=== PATIENT | female | born 1950 | race African-American/Black ===

== ENCOUNTER 2016-03-12 13:57 | Emergency (ER) | payer MEDICARE ==
[~2016-03-12] VITALS: Ht 157.5 cm; Wt 85.0 kg
[2016-03-12 14:01] VITALS: BP 167/76; PULSE 80; RESP 12; TEMP 98.5; O2SAT 96
--- NOTE | 2016-03-12 16:32 | PD ---
HPI Chief Complaint: Abnormal Results Time Seen by Provider: 16:28 Travel History International Travel<30 days: No Contact w/Intl Traveler<30days: No Traveled to known affect area: No History of Present Illness HPI 65 year-old female history of hypertension, end-stage renal disease, started hemodialysis 2 weeks ago in [place] the of Vas-Cath on her right anterior chest , presents to the emergency department seeking dialysis. Patient has relocated here from [place]. She went to the center today and was told that they were unable to dialyze her today but were hoping to be able to on her next scheduled day as . The patient is uncertain but believes it may be due to insurance and approval. She was advised by the man at the dialysis center, whom she is sure whom, to come to [place] for dialysis. The patient denies any chest pain or tightness. She states she is mildly short of breath. No recent illnesses, fever, or chills. She has no other symptoms to report. [facility] Social History Tobacco Use: No Allergies-Medications (Allergen,Severity, Reaction): Coded Allergies: No Known Allergies (Unverified , 03/12/16) Review of Systems Except as stated in HPI: all other systems reviewed are Neg Physical Exam Narrative GENERAL: Well-nourished female patient, in no acute distress SKIN: Warm and dry. Right anterior catheter in place. Dressing intact. HEAD: Atraumatic. Normocephalic. EYES: Pupils equal and round. No scleral icterus. No injection or drainage. ENT: No nasal bleeding or discharge. Mucous membranes pink and moist. NECK: Trachea midline. No JVD. CARDIOVASCULAR: Regular rate and rhythm. No murmur appreciated. RESPIRATORY: No accessory muscle use. Clear to auscultation. Breath sounds equal bilaterally. GASTROINTESTINAL: Abdomen soft, non-tender, nondistended. Hepatic and splenic margins not palpable. MUSCULOSKELETAL: No obvious deformities. No clubbing. No cyanosis. No edema. NEUROLOGICAL: Awake and alert. No obvious cranial nerve deficits. Motor grossly within normal limits. Normal speech. PSYCHIATRIC: Appropriate mood and affect; insight and judgment normal. Data Data Last Documented VS Vital Signs Date Time Temp Pulse Resp B/P Pulse Ox O2 Delivery O2 Flow Rate FiO2 03/12/16 19:24 16 98 Room Air 03/12/16 14:01 98.5 80 167/76 Orders Complete Blood Count With Diff (03/12/16 16:25) Basic Metabolic Panel (Bmp) (03/12/16 16:25) Urinalysis - C+S If Indicated (03/12/16 16:25) Electrocardiogram (03/12/16 ) Labs Laboratory Tests Test 03/12/16 17:10 White Blood Count 25.4 TH/MM3 Red Blood Count 3.27 MIL/MM3 Hemoglobin 8.9 GM/DL Hematocrit 28.6 % Mean Corpuscular Volume 87.6 FL Mean Corpuscular Hemoglobin 27.2 PG Mean Corpuscular Hemoglobin 31.0 % Concent Red Cell Distribution Width 15.5 % Platelet Count 531 TH/MM3 Mean Platelet Volume 8.8 FL Neutrophils (%) (Auto) 95.6 % Lymphocytes (%) (Auto) 3.3 % Monocytes (%) (Auto) 0.9 % Eosinophils (%) (Auto) 0.1 % Basophils (%) (Auto) 0.1 % Neutrophils # (Auto) 24.3 TH/MM3 Lymphocytes # (Auto) 0.8 TH/MM3 Monocytes # (Auto) 0.2 TH/MM3 Eosinophils # (Auto) 0.0 TH/MM3 Basophils # (Auto) 0.0 TH/MM3 CBC Comment AUTO DIFF Differential Total Cells 100 Counted Neutrophils % (Manual) 94 % Band Neutrophils % 1 % Lymphocytes % 4 % Monocytes % 1 % Neutrophils # (Manual) 24.1 TH/MM3 Differential Comment FINAL DIFF MANUAL Platelet Estimate HIGH Platelet Morphology Comment ENLARGED Urine Color LIGHT-YELLOW Urine Turbidity CLEAR Urine pH 5.5 Urine Specific [place] 1.011 Urine Protein 300 mg/dL Urine Glucose (UA) 70 mg/dL Urine Ketones NEG mg/dL Urine Occult Blood NEG Urine Nitrite NEG Urine Bilirubin NEG Urine Urobilinogen LESS THAN 2.0 MG/DL Urine Leukocyte Esterase NEG Urine RBC 1 /hpf Urine WBC 2 /hpf Urine Mucus FEW /lpf Microscopic Urinalysis Comment CULT NOT INDICATED Sodium Level 138 MEQ/L Potassium Level 4.8 MEQ/L Chloride Level 107 MEQ/L Carbon Dioxide Level 18.5 MEQ/L Anion Gap 13 MEQ/L Blood Urea Nitrogen 72 MG/DL Creatinine 5.20 MG/DL Estimat Glomerular Filtration 8 ML/MIN Rate Random Glucose 254 MG/DL Calcium Level 8.3 MG/DL [facility] Medical Decision Making Medical Screen Exam Complete: Yes Emergency Medical Condition: Yes Medical Record Reviewed: Yes Differential Diagnosis Normal examination versus electrolyte abnormality versus fluid overload Narrative Course 65 year-old female presents to the emergency department for evaluation. Patient appears without distress. Workup was initiated in triage. Once a medical bed becomes available, patient will be transferred. I have explained to the patient and her daughters that emergent dialysis may not be needed today pending these results. They verbalized understanding of this. Condition: Stable SalvadorMarianela HAMILTON Mar 12, 2016 16:28
[2016-03-12 17:30] LABS: AUTOMATED NEUTROPHIL # 24.3 TH/MM3 (1.8-7.7); BASOPHIL % 0.1 % (0.0-2.0); EOSINOPHIL % 0.1 % (0.0-4.0); HEMATOCRIT 28.6 % (35.0-46.0); LYMPH % 3.3 % (9.0-44.0); LYMPHOCYTE # 0.8 TH/MM3 (1.0-4.8); MEAN CELL VOLUME 87.6 FL (80.0-100.0); MEAN CORPUSCULAR HEMOGLOBIN 27.2 PG (27.0-34.0); MONO % 0.9 % (0.0-8.0); NEUT % 95.6 % (16.0-70.0); PLATELET COUNT 531 TH/MM3 (150-450); RED BLOOD COUNT 3.27 MIL/MM3 (4.00-5.30); RED CELL DISTRIBUTION WIDTH 15.5 % (11.6-17.2); WHITE BLOOD COUNT 25.4 TH/MM3 (4.0-11.0)
[2016-03-12 17:32] LABS: HEMO FLAGS AUTO DIFF
[2016-03-12 17:39] LABS: BLOOD, URINE NEG (NEG); COMMENT (UR) CULT NOT INDICATED; CULTURE IF INDICATED CULT NOT INDICATED; GLUCOSE,URINE 70 mg/dL (NEG); KETONE, URINE NEG (NEG); MUCUS URINE FEW /lpf (OCC); NITRITE,URINE NEG (NEG); PH, URINE 5.5 (5.0-8.5); URINE COLOR LIGHT-YELLOW (YELLW/STRAW)
[2016-03-12 17:48] LABS: BICARBONATE 18.5 MEQ/L (21.0-32.0); POTASSIUM 4.8 MEQ/L (3.5-5.1)
[2016-03-12 17:54] LABS: BANDS 1 % (0-6); NEUTROPHIL # MANUAL DIFF 24.1 TH/MM3 (1.8-7.7); POLYS (SEG NEUTROPHILS) 94 % (16-70); WBC DIFF SAMPLE 100
[2016-03-12 17:55] LABS: PLATELET ESTIMATE SMEAR HIGH (NORMAL); PLATELET MORPHOLOGY ENLARGED (NORMAL); SCAN/DIFF FINAL DIFF MANUAL
--- NOTE | 2016-03-12 21:10 | PD ---
Data Data Last Documented VS Vital Signs Date Time Temp Pulse Resp B/P Pulse Ox O2 Delivery O2 Flow Rate FiO2 03/12/16 19:24 16 98 Room Air 03/12/16 14:01 98.5 80 167/76 Orders Complete Blood Count With Diff (03/12/16 16:25) Basic Metabolic Panel (Bmp) (03/12/16 16:25) Urinalysis - C+S If Indicated (03/12/16 16:25) Electrocardiogram (03/12/16 ) Labs Laboratory Tests Test 03/12/16 17:10 White Blood Count 25.4 TH/MM3 Red Blood Count 3.27 MIL/MM3 Hemoglobin 8.9 GM/DL Hematocrit 28.6 % Mean Corpuscular Volume 87.6 FL Mean Corpuscular Hemoglobin 27.2 PG Mean Corpuscular Hemoglobin 31.0 % Concent Red Cell Distribution Width 15.5 % Platelet Count 531 TH/MM3 Mean Platelet Volume 8.8 FL Neutrophils (%) (Auto) 95.6 % Lymphocytes (%) (Auto) 3.3 % Monocytes (%) (Auto) 0.9 % Eosinophils (%) (Auto) 0.1 % Basophils (%) (Auto) 0.1 % Neutrophils # (Auto) 24.3 TH/MM3 Lymphocytes # (Auto) 0.8 TH/MM3 Monocytes # (Auto) 0.2 TH/MM3 Eosinophils # (Auto) 0.0 TH/MM3 Basophils # (Auto) 0.0 TH/MM3 CBC Comment AUTO DIFF Differential Total Cells 100 Counted Neutrophils % (Manual) 94 % Band Neutrophils % 1 % Lymphocytes % 4 % Monocytes % 1 % Neutrophils # (Manual) 24.1 TH/MM3 Differential Comment FINAL DIFF MANUAL Platelet Estimate HIGH Platelet Morphology Comment ENLARGED Urine Color LIGHT-YELLOW Urine Turbidity CLEAR Urine pH 5.5 Urine Specific [place] 1.011 Urine Protein 300 mg/dL Urine Glucose (UA) 70 mg/dL Urine Ketones NEG mg/dL Urine Occult Blood NEG Urine Nitrite NEG Urine Bilirubin NEG Urine Urobilinogen LESS THAN 2.0 MG/DL Urine Leukocyte Esterase NEG Urine RBC 1 /hpf Urine WBC 2 /hpf Urine Mucus FEW /lpf Microscopic Urinalysis Comment CULT NOT INDICATED Sodium Level 138 MEQ/L Potassium Level 4.8 MEQ/L Chloride Level 107 MEQ/L Carbon Dioxide Level 18.5 MEQ/L Anion Gap 13 MEQ/L Blood Urea Nitrogen 72 MG/DL Creatinine 5.20 MG/DL Estimat Glomerular Filtration 8 ML/MIN Rate Random Glucose 254 MG/DL Calcium Level 8.3 MG/DL [facility] Medical Record Reviewed: Yes Supervised Visit with MARTIN: Yes Narrative Course CBC & BMP Diagram 03/12/16 17:10 Neutrophils 94% Anion gap 13 Urinalysis shows no UTI The patient is on prednisone, presumably the etiology of her leukocytosis. Is no fever cough urinary complaint or specific medical complaints otherwise to suggest infection. Furthermore she has no complaints consistent with volume overload. The case was discussed with on-call nephrology and a plan for discharge home with follow-up in 2 days' time as scheduled ( at 415pm) at the patient's new dialysis center is considered reasonable. Strict dietary adherence discussed. Return precautions were discussed as well and the patient feels comfortable with plan. Diagnosis Primary Impression: ESRD (end stage renal disease) on dialysis Additional Impression: Leukocytosis, unspecified Referrals: Hemodialysis on Additional Instruction: You have a choice when it comes to health care, and we are glad that you chose [facility]. Hopefully, we have met your expectations on today's visit. You are welcome to return to [facility] at any time, as we are committed to meeting the health care needs of our community. Med/Other Pt SpecificInfo: No Change to Meds Disposition: 01 DISCHARGE HOME Condition: Stable Zelalem Mac MD Mar 12, 2016 21:09
--- NOTE | 2016-03-13 15:39 | EKG ---
Date Performed: 03/12/2016 Time Performed: 17:21:08 PTAGE: 65 years EKG: Sinus rhythm WITH MARKED SINUS ARRHYTHMIA MARKED T-WAVE ABNORMALITY, CONSIDER ANTEROLATERAL ISCHEMIA MODERATE T-W AVE ABNORMALITY, CONSIDER INFERIOR ISCHEMIA Compared to previous tracing, there is now evidence of do minant R waves in leads V2 and nonspecific ST-T wave changes inferiorly and deep inverted T waves in the anterior leads Clinical correlation is recommended Compared to prior tracing no significant hurley e ABNORMAL ECG PREVIOUS TRACING : 01/22/1995 10.28 DOCTOR: Yang Felipe Interpretating Date/Time 03/13/2016 15:38:34
[2016-07-10] MEDS ORDERED: HYDR-3801 PO (11:32)
== END 2016-03-12 23:08 | disposition home or self-care (01) ==
LOC: NEPE 13:57
DX: I12.0 Hypertensive chronic kidney disease with stage 5 chronic kidney disease or end stage renal disease (principal); N18.6 End stage renal disease; D72.829 Elevated white blood cell count, unspecified; Z99.2 Dependence on renal dialysis
CPT/HCPCS: 80048; 81001; 85007; 85027; 93005

== ENCOUNTER 2016-03-14 21:05 | Emergency (ER) | payer MEDICARE ==
[~2016-03-14] VITALS: Ht 157.5 cm; Wt 90.0 kg
[2016-03-14 21:07] VITALS: BP 172/79; PULSE 88; RESP 16; TEMP 98.4; O2SAT 97
[2016-07-10] MEDS ORDERED: HYDR-3801 PO (11:32)
== END 2016-03-15 02:20 | disposition left against medical advice (07) ==
LOC: NED 21:05
DX: R42 Dizziness and giddiness (principal); Z53.21 Procedure and treatment not carried out due to patient leaving prior to being seen by health care provider
CPT/HCPCS: 99281

== ENCOUNTER 2016-03-21 03:17 | Emergency (ER) | payer MEDICARE ==
[~2016-03-21] VITALS: Ht 157.5 cm; Wt 85.0 kg
[2016-03-21 03:22] VITALS: BP 195/84; PULSE 90; RESP 18; TEMP 98.7; O2SAT 94
[2016-03-21] MEDS ORDERED: TRAM50TA PO (03:42)
[2016-03-21] MEDS ORDERED: GABA100C4 PO (03:42)
[2016-03-21] MEDS ORDERED: ASPI325T PO (03:42)
[2016-03-21] MEDS ORDERED: PRED20 PO (03:42)
[2016-03-21] MEDS ORDERED: AMLO5TAB2 PO (03:42)
[2016-03-21] MEDS ORDERED: LIPI80TA PO (03:42)
[2016-03-21] MEDS ORDERED: HYDR50TA15 PO (03:42)
[2016-03-21] MEDS ORDERED: PLAV75TA29 PO (03:42)
[2016-03-21] MEDS ORDERED: CARV12.5 PO (03:42)
[2016-03-21] MEDS ORDERED: NITROGLYCERIN 2% OINT 1 GM PACKET TOP ONE (03:45)
[2016-03-21] MEDS ORDERED: SODIUM CHLORIDE 0.9% FLUSH 5 ML FLUSH IVF PRN (03:45)
[2016-03-21] MEDS ORDERED: ASPIRIN 325 MG TAB PO ONE (03:45)
[2016-03-21] MEDS ORDERED: MORPHINE SULFATE 4 MG/ML INJ IV PUSH ONE (03:45)
[2016-03-21 03:57] LABS: BASOPHIL # 0.1 TH/MM3 (0-0.2); BASOPHIL % 0.6 % (0.0-2.0); EOSINOPHIL # 0.1 TH/MM3 (0-0.4); EOSINOPHIL % 0.5 % (0.0-4.0); HEMATOCRIT 25.1 % (35.0-46.0); HEMO FLAGS DIFF FINAL; LYMPH % 10.4 % (9.0-44.0); LYMPHOCYTE # 1.5 TH/MM3 (1.0-4.8); MEAN CELL VOLUME 85.1 FL (80.0-100.0); MEAN CORPUSCULAR HGB CONC 32.9 % (32.0-36.0); NEUT % 82.5 % (16.0-70.0); PLATELET COUNT 408 TH/MM3 (150-450); RED BLOOD COUNT 2.96 MIL/MM3 (4.00-5.30); RED CELL DISTRIBUTION WIDTH 15.1 % (11.6-17.2); WHITE BLOOD COUNT 14.6 TH/MM3 (4.0-11.0)
--- NOTE | 2016-03-21 04:05 | RADRPT ---
EXAM DATE/TIME: 03/21/2016 01:56 [facility] COMPARISON: No previous studies available for comparison. INDICATIONS : Patient has had chest pain since last night. MEDICAL HISTORY : Hypertension. Colon cancer. SURGICAL HISTORY : section. Carotid stent. ENCOUNTER: Initial ACUITY: 1 day PAIN SCORE: 1/10 LOCATION: Bilateral chest FINDINGS: Lungs are clear. Right jugular line tip overlies the SVC. Heart size normal. Osseous structures are i ntact. CONCLUSION: No acute disease. Andriy Agarwal MD on March 21, 2016 at 4:03 Board Certified Radiologist. This report was verified electronically.
[2016-03-21 04:14] LABS: BICARBONATE 24.3 MEQ/L (21.0-32.0); MAGNESIUM 1.7 MG/DL (1.5-2.5); POTASSIUM 4.3 MEQ/L (3.5-5.1)
[2016-03-21 04:28] LABS: APTT (PATIENT) 27.6 SEC (24.3-30.1); INTERNATIONAL NORMALIZED RATIO 0.9 RATIO; PROTHROMBIN TIME - PATIENT 10.1 SEC (9.8-11.6)
--- NOTE | 2016-03-21 04:37 | PD ---
HPI Chief Complaint: Chest Pain Time Seen by Provider: 03:27 Travel History International Travel<30 days: No Contact w/Intl Traveler<30days: No Traveled to known affect area: No History of Present Illness HPI 65-year-old female arrives with chest pain for a few hours. Location left chest and retrosternal. There is radiation left arm. Onset occurred at rest. Severity moderate. She has a history of coronary artery disease and was stented a few months ago in [place]. She has been strictly compliant with aspirin and Plavix. She is end-stage renal disease on dialysis Friday and has been compliant with dialysis. She has no shortness of breath. No fever or cough. She was diaphoretic at home according to daughter. [facility] Past Medical History Diabetes: Yes Dialysis: Yes Diminished Hearing: No Hypertension: Yes Medical other: Yes (COLON CA) Myocardial Infarction: Yes (STENTS) Renal Failure: Yes Tetanus Vaccination: < 5 Years Influenza Vaccination: No Menopausal: Yes : 5 Para: 5 Past Surgical History Section: Yes Social History Alcohol Use: No Tobacco Use: No Substance Use: No Allergies-Medications (Allergen,Severity, Reaction): Coded Allergies: No Known Allergies (Unverified , 03/21/16) Reported Meds & Prescriptions Reported Meds & Active Scripts Active Reported Hydralazine (Hydralazine HCl) 50 Mg Tab 50 Mg PO TID Take with a meal Hydralazine (Hydralazine HCl) 50 Mg Tab 75 Mg PO TID Take with a meal Tramadol (Tramadol HCl) 50 Mg Tab 50 Mg PO HS PRN Coreg (Carvedilol) 12.5 Mg Tab 12.5 Mg PO BID Plavix (Clopidogrel Bisulfate) 75 Mg Tab 75 Mg PO DAILY Amlodipine (Amlodipine Besylate) 5 Mg Tab 5 Mg PO DAILY Lipitor (Atorvastatin Calcium) 80 Mg Tab 80 Mg PO HS Aspirin 325 Mg Tab 325 Mg PO DAILY Prednisone 20 Mg Tab 20 Mg PO DAILY Gabapentin 100 Mg Cap 100 Mg PO TID Review of Systems Except as stated in HPI: all other systems reviewed are Neg General / Constitutional: No: Fever Cardiovascular: Positive: Chest Pain or Discomfort, Diaphoresis Physical Exam Narrative GENERAL: 65-year-old female well-nourished well-developed pleasant SKIN: Warm and dry. HEAD: Atraumatic. Normocephalic. EYES: Pupils equal and round. No scleral icterus. No injection or drainage. ENT: No nasal bleeding or discharge. Mucous membranes pink and moist. NECK: Trachea midline. No JVD. CARDIOVASCULAR: Regular rate and rhythm. No murmur appreciated. Right anterior chest wall tunnel catheter. RESPIRATORY: No accessory muscle use. Clear to auscultation. Breath sounds equal bilaterally. GASTROINTESTINAL: Abdomen soft, non-tender, nondistended. Hepatic and splenic margins not palpable. MUSCULOSKELETAL: No obvious deformities. No clubbing. No cyanosis. No edema. NEUROLOGICAL: Awake and alert. No obvious cranial nerve deficits. Motor grossly within normal limits. Normal speech. PSYCHIATRIC: Appropriate mood and affect; insight and judgment normal. Data Data Last Documented VS Vital Signs Date Time Temp Pulse Resp B/P Pulse Ox O2 Delivery O2 Flow Rate FiO2 03/21/16 03:28 93 20 96 Room Air 03/21/16 03:22 98.7 195/84 Vital signs reviewed Orders Electrocardiogram (03/21/16 03:45) Basic Metabolic Panel (Bmp) (03/21/16 03:45) Ckmb (Isoenzyme) Profile (03/21/16 03:45) Complete Blood Count With Diff (03/21/16 03:45) Magnesium (Mg) (03/21/16 03:45) Prothrombin Time / Inr (Pt) (03/21/16 03:45) Act Partial Throm Time (Ptt) (03/21/16 03:45) Troponin I (03/21/16 03:45) Chest, Single Ap (03/21/16 03:45) Ecg Monitoring (03/21/16 03:45) Bilateral Bp Monitoring (03/21/16 03:45) Iv Access Insert/Monitor (03/21/16 03:45) Oximetry (03/21/16 03:45) Oxygen Administration (03/21/16 03:45) Aspirin (Aspirin) (03/21/16 03:45) Morphine Inj (Morphine Inj) (03/21/16 03:45) Nitroglycerin 2% Oint (Nitroglycerin 2% (03/21/16 03:45) Sodium Chloride 0.9% Flush (Ns Flush) (03/21/16 03:45) Labs Laboratory Tests Test 03/21/16 03:45 White Blood Count 14.6 TH/MM3 Red Blood Count 2.96 MIL/MM3 Hemoglobin 8.3 GM/DL Hematocrit 25.1 % Mean Corpuscular Volume 85.1 FL Mean Corpuscular Hemoglobin 28.0 PG Mean Corpuscular Hemoglobin 32.9 % Concent Red Cell Distribution Width 15.1 % Platelet Count 408 TH/MM3 Mean Platelet Volume 8.1 FL Neutrophils (%) (Auto) 82.5 % Lymphocytes (%) (Auto) 10.4 % Monocytes (%) (Auto) 6.0 % Eosinophils (%) (Auto) 0.5 % Basophils (%) (Auto) 0.6 % Neutrophils # (Auto) 12.0 TH/MM3 Lymphocytes # (Auto) 1.5 TH/MM3 Monocytes # (Auto) 0.9 TH/MM3 Eosinophils # (Auto) 0.1 TH/MM3 Basophils # (Auto) 0.1 TH/MM3 CBC Comment DIFF FINAL Differential Comment Prothrombin Time 10.1 SEC Prothromb Time International 0.9 RATIO Ratio Activated Partial 27.6 SEC Thromboplast Time Sodium Level 139 MEQ/L Potassium Level 4.3 MEQ/L Chloride Level 105 MEQ/L Carbon Dioxide Level 24.3 MEQ/L Anion Gap 10 MEQ/L Blood Urea Nitrogen 41 MG/DL Creatinine 4.16 MG/DL Estimat Glomerular Filtration 13 ML/MIN Rate Random Glucose 239 MG/DL Calcium Level 8.5 MG/DL Magnesium Level 1.7 MG/DL Total Creatine Kinase 41 U/L Troponin I 0.03 NG/ML MDM Medical Decision Making Medical Screen Exam Complete: Yes Emergency Medical Condition: Yes Medical Record Reviewed: Yes Differential Diagnosis NSTEMI, unstable angina, coronary vasospasm, PE, PTX, aortic dissection, pericarditis, myocarditis, endocarditis, PNA, esophageal disease, aneurysm, musculoskeletal etiologies, anxiety, cocaine/sympathomimetic abuse Narrative Course EKG reveals a sinus rhythm at a rate of 91 with T-wave inversions in the precordial and lateral leads normal axis (T-wave inversions are essentially unchanged compared to 10 days prior CBC & BMP Diagram 03/21/16 03:45 Troponin less than 0.03 INR 0.9 Last 24 hours Impressions Chest X-Ray 03/21/16 0256 Signed Impressions: Service Date/Time: March 01:56 - CONCLUSION: No acute disease. Andriy Agarwal MD The patient has remained chest pain-free throughout her ER stay. We had a long talk about the patient's need for ongoing outpatient follow-up with cardiology and primary care. Multiple follow-up referrals provided. Family verbalized appreciation and agreement to establish follow-up most expeditiously. Return precautions discussed. Diagnosis Primary Impression: ESRD (end stage renal disease) on dialysis Additional Impression: Chest pain Qualified Code: R07.9 - Chest pain, unspecified type Referrals: Geraldo Betancourt MD Candy Counter Clerk Prerna Harris MD Primary Care Provider Jamir Mac DO Candy Counter Clerk Jagruti Hernandez MD Primary Care Provider Additional Instructions: You have a choice when it comes to health care, and we are glad that you chose [facility]. Hopefully, we have met your expectations on today's visit. You are welcome to return to [facility] at any time, as we are committed to meeting the health care needs of our community. Med/Other Pt SpecificInfo: No Change to Meds Disposition: 01 DISCHARGE HOME Condition: Stable Zelalem Mac MD Mar 21, 2016 04:37
[2016-03-21 05:38] VITALS: O2SAT 96
[2016-03-21 05:40] VITALS: BP 176/78; PULSE 87; RESP 18; TEMP 98.1; O2SAT 96
--- NOTE | 2016-03-21 08:07 | EKG ---
Date Performed: 03/21/2016 Time Performed: 03:22:11 PTAGE: 65 years EKG: Sinus rhythm Nonspecific T wave changes ABNORMAL ECG COMPARED TO PRIOR ELECTROCARDIOGRAM, T wave changes have imp roved slightly in the limb leads. PREVIOUS TRACING : 03/12/2016 17.21 DOCTOR: Marcos Hernandez Interpretating Date/Time 03/21/2016 08:05:49
[2016-07-10] MEDS ORDERED: HYDR-3801 PO (11:32)
== END 2016-03-21 05:41 | disposition home or self-care (01) ==
LOC: NEPE 03:17
DX: N18.6 End stage renal disease (principal); I12.0 Hypertensive chronic kidney disease with stage 5 chronic kidney disease or end stage renal disease; E11.22 Type 2 diabetes mellitus with diabetic chronic kidney disease; Z99.2 Dependence on renal dialysis; R07.9 Chest pain, unspecified; I25.2 Old myocardial infarction; R94.31 Abnormal electrocardiogram [ECG] [EKG]; Z79.01 Long term (current) use of anticoagulants
CPT/HCPCS: 71010; 80048; 82550; 83735; 84484; 85025; 85610; 85730; 93005; 96374; 99285; J2270

== ENCOUNTER → 2016-05-06 | Day surgery (SDC) | payer MEDICARE ==
[~2016-05-06] VITALS: Ht 157.5 cm; Wt 82.4 kg
[~2016-05-06] MED LIST: *morphine SULFATE 8 MG/ML PERIprocedure ONLY ONE; AMLO5TAB2 PO; ASPI325T PO; BUPIVACAINE/EPINEPHRINE 0.25% 50 ML VIAL ONE; CARV12.5 PO; DO NOT ADM ANY ANTICOAGULANT DRUGS XX PRN; GABA100C4 PO; GELFOAM SIZE 100 ONE; HEPARIN SODIUM - IV 10,000 UNITS/10 ML VIAL IV ONE; HEPARIN SODIUM - IV 10,000 UNITS/10 ML VIAL ONE; HEPARIN SODIUM - SQ 10,000 UNITS/ML VIAL ONE; HYDR-3801 PO; HYDR50TA15 PO; LIPI80TA PO; MAGNESIUM SULFATE 1 GM/100 ML IV PRN; MIDAZOLAM HCL 2 MG/2 ML VIAL ONE; MORPHINE SULFATE 4 MG/ML INJ IV PRN; ONDANSETRON HCL 4 MG/2 ML VIAL IV PUSH PRN; PLAV75TA29 PO; POTASSIUM CHLOR 20 MEQ 100 ML x 2 BAGS IV PRN; POTASSIUM CHLOR 20 MEQ/100 ML x 1 BAG IV PRN; POTASSIUM PHOSPHATE 21 MMOL/NS 250 ML IV PRN; PRED20 PO; PROTAMINE SULFATE 50 MG/5 ML VIAL ONE; SODIUM CHLORIDE 0.9% FLUSH 10 ML FLUSH IV FLUSH PRN; SODIUM CHLORIDE 0.9% FLUSH 10 ML FLUSH IV FLUSH SCH; THROMBIN (TOPICAL) 5,000 UNIT VIAL ONE; TRAM50TA PO; VANCOMYCIN HCL 1000 MG VIAL ONE
[2016-05-06 06:15] VITALS: BP 168/74; PULSE 82; RESP 20; TEMP 98.2; O2SAT 98
[2016-05-06 07:42] LABS: PROTHROMBIN TIME - PATIENT 10.5 SEC (9.8-11.6)
[2016-05-06 13:21] VITALS: BP 121/63; PULSE 72; RESP 18; TEMP 97.9; O2SAT 98
--- NOTE | 2016-05-08 10:31 | MP ---
cc: RAÚL PARISI DATE OF SURGERY: 05/06/2016 PREOPERATIVE DIAGNOSIS End-stage renal disease. POSTOPERATIVE DIAGNOSIS End-stage renal disease PROCEDURE Left upper extremity AV graft with 5 mm bovine carotid artery between the brachial artery and brachial vein. ANESTHESIA Sedation with LMA; approximately 30 cc of 0.25% Marcaine with epinephrine. SURGEON Isaac Chao IV FLUIDS NA. ESTIMATED BLOOD LOSS Minimal. DETAILS OF PROCEDURE The patient's left upper extremity was prepped and draped in a sterile fashion after being under MAC anesthesia. We ultimately had to convert to LMA. I did inject approximately a total of 30 cc of 0.25% Marcaine with epinephrine throughout the case for my two incisions. It should be noted that the patient did get perioperative IV vancomycin. I made an incision just above the antecubital fossa medially with a scalpel and electrocautery, I dissected down to the brachial artery. It should be noted that the patient did not have a brachial artery but had an ulnar and radial artery at a level with a high bifurcation takeoff. I dissected out both of them and it appeared that the ulnar artery was the more dominant artery so I got vessel loops across it proximally and distally. Just below the axilla I made another 2 cm incision longitudinally with a scalpel and electrocautery, and I dissected down to what appeared to be the confluence of the axillary and brachial vein. I mobilized the vein and tied off and side branches with 2-0 and 3-0 silks and small and medium clips as needed. Once this was isolated I made a tunnel between the two incisions, one above the antecubital fossa and one just below the axilla. This was made with a Shuropody tunneler. After I made my tunnel we heparinized the patient with 3000 units of heparin. Then I placed my carotid bovine artery within the tunnel and then performed an end-to-side anastomosis at the arterial and venous end with a 5-0 Prolene on each side in a continuous running fashion. It should be noted that I controlled the ulnar artery with profunda clamps proximally and distally and with the vein I used small bulldogs in order to control the vessel. It should be noted that whenever I performed my arteriotomy and my venotomy the vessel appeared clean on both sides. After the case the patient had a nice thrill in the carotid bovine graft and the patient had a palpable radial and a Doppler'able ulnar signal as well as a palmar arch signal in the hand. The patient tolerated the procedure well. We closed in layers with 2-0 and 3-0 Vicryl absorbable suture and 4-0 Monocryl with Dermabond. It should be noted that we did use Surgicel and thrombin to help with hemostasis. DO BEL Orozco/YVETTE /11:55 AM /10:12 AM
== END | disposition home or self-care (01) ==
LOC: HCVO 06:00
PROVIDERS: ATTEND Surgery
DX: N18.6 End stage renal disease (principal); I12.0 Hypertensive chronic kidney disease with stage 5 chronic kidney disease or end stage renal disease; I25.10 Atherosclerotic heart disease of native coronary artery without angina pectoris; E78.5 Hyperlipidemia, unspecified; Z95.5 Presence of coronary angioplasty implant and graft
CPT/HCPCS: 01844; 36830; 76937; 84132; 85610; 86850; 86900; 86901; 86902; 86920; 86922; J1644; J2250; J2270; J3010; J3370; J2720